=== PATIENT | female | born 1990 | race Caucasian/White ===

== ENCOUNTER → 2023-02-23 | Outpatient (REF) | payer SELFPAY ==
[~2023-02-23] MED LIST: ONDA4TAB6 PO; ROLA1CHW2 PO
== END ==
LOC: M LAB REF 11:06
PROVIDERS: ATTEND Physician Assistant
DX: R19.7 Diarrhea, unspecified (principal)

== ENCOUNTER → 2023-06-24 | Outpatient (CLI) | payer BC ==
[2023-06-24 16:02] LABS: CREATININE FOR GFR 0.73 MG/DL (0.55-1.30); GLOMERULAR FILTRATION RATE > 60.0 (>60); HEMOGLOBIN A1c 5.2 % (4.0-6.0)
[2023-06-24 16:03] LABS: ALBUMIN 4.1 G/DL (3.2-5.2); BILIRUBIN,DIRECT 0.2 MG/DL (<0.4); BILIRUBIN,TOTAL 0.6 MG/DL (0.3-1.2); TOTAL PROTEIN 7.5 G/DL (5.7-8.2)
== END ==
LOC: M LAB 15:10
PROVIDERS: ATTEND Internal Medicine Obesity Medicine
DX: E66.3 Overweight (principal)